=== PATIENT | male | born 1975 | race Caucasian/White ===

== ENCOUNTER 2021-02-19 02:21 | Emergency (ER) | payer BC, SELFPAY ==
[2021-02-19 02:24] VITALS: BP 161/65; PULSE 70; RESP 18; TEMP 36.7; O2SAT 98; BMI 42.3
--- NOTE | 2021-02-19 03:31 | PC.NURSE ---
PT TO HALLWAY BED WITH C/O NECK PAIN. PT ARRIVES ALERT, RESPIRATIONS EASY N/L. SKIN W/D. PT AWAITING FOR MD'S EVAL. WILL CONTINUE TO MONITOR PT.
--- NOTE | 2021-02-19 03:47 | ED_ITS ---
HPI - General Adult General Chief complaint: Neck Pain/Injury Stated complaint: Neck pain (no injury) Time Seen by Provider: 02/19/21 03:44 Source: patient Mode of arrival: ambulatory History of Present Illness HPI narrative: This is a 45-year-old male without significant past medical history who presents with neck pain that has been worsening since Friday night and has not been associated with any headache/dizziness/fevers/chills and ricco kinsey reports that he is up-to-date on all vaccines. In addition, patient denies any ear pain, sore throat, recent cough, or traumatic event. Related Data Previous Rx's Medication Instructions Recorded cyclobenzaprine 10 mg tablet 10 mg PO BEDTIME PRN #4 tab 02/19/21 ketorolac 10 mg tablet 10 mg PO Q6H PRN 5 Days #20 tab 02/19/21 Allergies Allergy/AdvReac Type Severity Reaction Status Date / Time acetaminophen [From TYLENOL] Allergy Severe RASH Unverified 12/23/19 14:41 Review of Systems Review of Systems: Pertinent positives and negatives as stated in HPI 10 point review of systems is otherwise negative. PMFSH Past Medical History Source: nursing notes reviewed Medical History Sleep apnea Sleep apnea Surgical History H/O cardiac radiofrequency ablation Social History Social History Advance Directives: No Physical Exam Vital Signs: Vital Signs: Last Vital Signs Temp 98.0 F 02/19/21 02:24 Pulse 70 02/19/21 02:24 Resp 18 02/19/21 02:24 BP 161/65 H 02/19/21 02:24 Pulse Ox 98 02/19/21 02:24 Body Mass Index 42.3 VITAL SIGNS: Reviewed. GENERAL: Well developed, well nourished, in no acute distress. HEAD: Normocephalic/atraumatic, enlarged lymph node that is tender on palpation noted at right occipital base EYES: PERRLA, EOMI EARS: Ext canals without abnormality, TMs non-bulging and non-erythematous NOSE: Nares patent bilateral OROPHARYNX: no oral lesions noted, posterior pharynx clear and non-erythematous without noted tonsillar enlargement/erythema/exudates NECK: Supple, no adenopathy, pain on flexion/extension/looking over either shoulder, there is no tenderness to palpation at midline cervical. LUNGS: Normal breath sounds. No adventitious sounds or accessory muscle use. SpO2<98> CARDIOVASCULAR: Regular rate and rhythm without noted murmurs, ABDOMEN: Soft, non-tender, non-distended with bowel sounds. MUSCULOSKELETAL: No tenderness, deformities, or effusions noted on gross inspection. EXTREMITIES: No cyanosis, clubbing or edema. SKIN: Inspection of the skin reveals no rashes NEUROLOGIC: Alert and oriented x 4. Strength and sensation to light touch were grossly intact x 4. Course Course Course Narrative: 45-year-old male with history and clinical presentation consistent with muscle spasm and low clinical suspicion for any meningitis, strep throat. Will treat with combination analgesics as well as muscle relaxant and lidocaine patch. Re-evaluation after patient received combination medication treatment and he reports significant improvement in the range of motion of his neck but still complains of pain at the lymph node. All results and findings were discussed with him and he was instructed to follow-up with his primary care provider but to continue to use warm moist compresses at that site to promote resolution. Discharge Plan Discharge Clinical Impression: Adenopathy, Muscle spasm Patient Disposition: Home, Self-Care Instructions: Lymphadenopathy (ED), Muscle Spasm (ED) Additional Instructions: 1. Lidocaine, these are available [id number] and can be apply to area of maximal tenderness as directed on the outside packaging. 2. Follow-up with your primary care provider by calling this morning and setting up an appointment for re-evaluation and further outpatient management. 3. Apply warm moist compresses to the area of tenderness to help expedite resolution. Return to the ER for acute worsening of symptoms. Prescriptions: New ketorolac 10 mg tablet 10 mg PO Q6H PRN (Reason: pain) 5 Days Qty: 20 RF: 0 cyclobenzaprine 10 mg tablet 10 mg PO BEDTIME PRN (Reason: muscle spasm) Qty: 4 RF: 0 Referrals: Jose Alejandro Hernandez MD [Primary Care Provider] - 2 days
[2021-02-19] MEDS: Ketorolac Tromethamine 15 MG/ML VIAL IVPUSH (04:01)
[2021-02-19] MEDS: Lidocaine 4 % Patch ADH..PATCH 1 PATCH TRANSDERMA (04:02)
[2021-02-19] MEDS: Cyclobenzaprine HCl 10 MG TABLET PO (04:02)
== END 2021-02-19 05:18 | disposition home or self-care (01) ==
PROVIDERS: Emergency Provider Student in an Organized Health Care Education/Training Program; PCP Internal Medicine
DX: M62.838 Other muscle spasm (principal); R59.0 Localized enlarged lymph nodes
CPT/HCPCS: 96374; 99283; 99284; J1885

== ENCOUNTER 2021-02-19 13:45 | Emergency (ER) | payer BC, SELFPAY ==
--- NOTE | ~2021-02-19 | CT_ITS ---
CT SOFT TISSUE NECK WITH IV CONTRAST CLINICAL INFORMATION: Right-sided neck swelling/mastoid swelling and neck stiffness. COMPARISON: None available. TECHNIQUE: Following the intravenous administration of 60 mL of Omnipaque 350 intravenous contrast, helical imaging was performed in the axial plane with generation of coronal and sagittal reformatted images. This CT examination was performed using dose optimization techniques as appropriate, variously including the following: *Automated exposure control *Adjustment of mA and/or kV according to patient size (this includes techniques or standardized protocols for targeted exams where dose is matched to indication/reason for exam; i.e. extremities or head) *Use of iterative reconstruction technique FINDINGS: There is focal reticulation superficial to the posterior aspect of the superficial right parotid lobe which could reflect early parotitis given the clinical history. No radiopaque calculi along Stensen's duct on either side and no discrete drainable abscess. The submandibular glands are normal. The thyroid gland is enlarged and heterogeneous in attenuation which can be further assessed with thyroid function tests. No contour abnormality or pathologic enhancement is seen within the oral cavity or pharyngeal mucosal space. There is retropharyngeal/prevertebral soft tissue swelling at the C2-C5 levels that could reflect retropharyngeal cellulitis or that could reflect longus coli calcific tendinitis given the presence of very mild calcification inferior to the anterior C1 ring on the right side. The laryngeal structures are normal. The parapharyngeal fat is preserved. The carotid sheath vasculature opacify normally. No extra mucosal soft tissue mass or fluid collection is seen. No cervical lymphadenopathy. The superior mediastinum is unremarkable. The lung apices are clear. The mastoid air cells and visualized portions of the paranasal sinuses are well-aerated. Reversal of the cervical lordosis. Elongated styloid processes bilaterally that can be correlated for clinical signs of Chilkat syndrome. There is periapical lucency surrounding the root of the right first mandibular premolar. The imaged portions of the brain parenchyma are unremarkable. CT/CT soft tissue neck w con IMPRESSION: - There is retropharyngeal/prevertebral soft tissue swelling at the C2-C5 levels that could reflect retropharyngeal cellulitis or that could reflect longus coli calcific tendinitis given the presence of very mild calcification inferior to the anterior C1 ring on the right side. - There is focal reticulation superficial to the posterior aspect of the superficial right parotid lobe which could reflect early parotitis given the clinical history. No radiopaque calculi along Stensen's duct on either side and no discrete drainable abscess. - The thyroid gland is enlarged and heterogeneous in attenuation which can be further assessed with thyroid function tests. - Elongated styloid processes bilaterally that can be correlated for clinical signs of Chilkat syndrome. - There is periapical lucency surrounding the root of the right first mandibular premolar.
[2021-02-19 14:34] VITALS: BP 170/94; PULSE 94; RESP 18; TEMP 37.2; O2SAT 95; BMI 37.5
[2021-02-19 17:28] LABS: MANUAL DIFF FLAG NO
[2021-02-19 17:30] VITALS: BP 143/80; PULSE 97; RESP 17; TEMP 36.9; O2SAT 97
[2021-02-19 17:30] LABS: Basophils Percent Auto 0.2 % (0-2); Eosinophils Absolute Auto 0.1 X10*3/uL (0.0-0.4); Eosinophils Percent Auto 0.8 % (0-4); Hematocrit 45.3 % (42.0-52.0); Hemoglobin 15.7 g/dl (14.0-18.0); Imm Gran Abs Auto 0.08 X10*3/uL (0.00-0.03); Imm Gran Pct Auto 0.7 % (0.0-0.4); Mean Corpuscular HGB Conc 34.7 g/dl (31.0-36.0); Mean Corpuscular Hemoglobin 31.1 pg (27.0-33.0); Mean Corpuscular Volume 89.7 fL (80.0-98.0); Mean Platelet Volume 10.1 fL (9.4-12.4); Monocytes Absolute Auto 0.7 X10*3/uL (0.1-1.2); Monocytes Percent Auto 5.5 % (2-11); Neutrophils Absolute Auto 9.3 x10*3/uL (2.0-8.3); Neutrophils Percent Auto 76.8 % (45-73); Platelet Count 252 X10*3/uL (160-400); Red Blood Count 5.05 X10*6/uL (4.60-5.80); Red Cell Distribution Width 12.3 % (11.0-16.0); White Blood Count 12.2 X10*3/uL (4.8-10.8)
[2021-02-19] MEDS: diazePAM 5 MG TABLET PO (17:32)
[2021-02-19 17:39] LABS: IDNOW Serial# 9DD0AD1C; Strep A Nucleic Acid Negative (Negative)
--- NOTE | 2021-02-19 17:46 | ED_ITS ---
HPI - General Adult General Chief complaint: General Medical <SARAH Flores - Last Filed: 02/19/21 18:54> Stated complaint: neck pain <SARAH Flores Last Filed: 02/19/21 18:54> Time Seen by Provider: 02/19/21 16:26 <SARAH Flores - Last Filed: 02/19/21 18:54> Source: patient <SARAH Flores - Last Filed: 02/19/21 18:54> Mode of arrival: ambulatory <SARAH Flores - Last Filed: 02/19/21 18:54> History of Present Illness HPI narrative: 45-year-old male with a past medical history of sleep apnea presenting to the ED complaining of continued neck pain/stiffness > right, worsening since Friday with associated sore throat, mild headache, and swelling behind right ear. Admits to chills. Patient was evaluated in ED this morning for similar symptoms, discharged with Flexeril/Toradol without relief. Denies lig htheadedness/dizziness, vision changes, CP/SOB, weakness, numbness, back pain, fever, trauma/fall or injury <SARAH Flores - Last Filed: 02/19/21 18:54> Onset (ago): day(s) <SARAH Flores - Last Filed: 02/19/21 18:54> Related Data Home medications: Previous Rx's Medication Instructions Recorded clindamycin HCl 300 mg capsule 450 mg PO Q8H 7 Days #32 cap 02/19/21 cyclobenzaprine 10 mg tablet 10 mg PO BEDTIME PRN #4 tab 02/19/21 ketorolac 10 mg tablet 10 mg PO Q6H PRN 5 Days #20 tab 02/19/21 lidocaine 5 % topical patch 1 patch TOPICAL DAILY PRN #30 ea 02/19/21 (Lidoderm) MDD remove after 12 hours oxycodone 5 mg capsule 5 mg PO Q8H PRN 3 Days #9 cap 02/19/21 <SARAH Flores - Last Filed: 02/19/21 18:54> Allergies/adverse reactions: Allergies Allergy/AdvReac Type Severity Reaction Status Date / Time acetaminophen [From TYLENOL] Allergy Severe RASH Verified 02/19/21 14:34 <SARAH Flores - Last Filed: 02/19/21 18:54> Review of Systems Review of Systems: Constitutional: No Fever, No Fatigue, No Malaise ENT/Mouth: No Hearing loss, No Ear Pain, No Nasal Congestion, No Sinus Pain, No Hoarseness, + sore throat, No Rhinorrhea, No Swallowing Difficulty Eyes: No Eye Pain, No Swelling, No Redness, No visual changes Cardiovascular: No Chest Pain, No SOB, No Dyspnea on Exertion Respiratory: No Cough, No Dyspnea Gastrointestinal: No Nausea, No Vomiting, No Diarrhea, No Constipation, No Abdominal pain Genitourinary: No Dysuria, No Urinary Incontinence, No Flank Pain Musculoskeletal: + joint pain, No Myalgias, No Joint Swelling Skin: No Skin Lesions, No rash Neuro: No Weakness, No Numbness, No Dizziness, + Headache <SARAH Flores - Last Filed: 02/19/21 18:54> Yes all other systems are reviewed and are negative <SARAH Flores - Last Filed: 02/19/21 18:54> [facility] Past Medical History Attestation statement: The following information was validated with the patient. <SARAH Flores - Last Filed: 02/19/21 18:54> Medical History: Medical History (Updated 02/19/21 @ 18:52 by SARAH Flores) Sleep apnea <SARAH Flores - Last Filed: 02/19/21 18:54> Surgical History: Surgical History H/O cardiac radiofrequency ablation <SARAH Flores - Last Filed: 02/19/21 18:54> Social History Social History: Social History Advance Directives: No <SARAH Flores Last Filed: 02/19/21 18:54> Physical Exam Vital Signs: Vital Signs: Last Vital Signs Temp 98 F 02/19/21 19:37 Pulse 90 02/19/21 19:37 Resp 18 02/19/21 19:37 BP 153/78 H 02/19/21 19:37 Pulse Ox 97 02/19/21 19:37 Body Mass Index 37.5 <SARAH Flores - Last Filed: 02/19/21 18:54> Vital Signs: Last Vital Signs Temp 98 F 02/19/21 19:37 Pulse 90 02/19/21 19:37 Resp 18 02/19/21 19:37 BP 153/78 H 02/19/21 19:37 Pulse Ox 97 02/19/21 19:37 Body Mass Index 37.5 <Serene Perdue NC - Last Filed: 02/19/21 19:52> Const: General: cooperative, healthy appearing and no acute distress <SARAH Flores - Last Filed: 02/19/21 18:54> Orientation/consciousness: patient oriented x3 <SARAH Flores - Last Helio ed: 02/19/21 18:54> Limitations: no limitations <SARAH Flores - Last Filed: 02/19/21 18:54> HENMT: Other: Right mastoid with mild swelling and tenderness to palpation. Slight overlying erythema. Mild right-sided submandibular/postauricular lymphadenopathy <SARAH Flores - Last Filed: 02/19/21 18:54> Head: Yes normal to inspection and Yes atraumatic <Chapis Song NC - Last Filed: 02/19/21 18:54> Ears: hearing grossly normal bilaterally, external ears normal and TM's normal bilaterally <SARAH Flores - Last Filed: 02/19/21 18:54> General nose exam: Normal external nose present <SARAH Flroes - Last Filed: 02/19/21 18:54> Face and sinus: Yes normal facial exam <SARAH Flores - Last Filed: 02/19/21 18:54> Mouth: no audible dysphonia, no drooling, trismus and restricted motion (Secondary to neck pain) <SARAH Flores - Last Filed: 02/19/21 18:54> Throat: Yes posterior oropharynx normal, Yes tonsils normal, Yes uvula midline, No peritonsillar mass and No uvular edema <SARAH Flores - Last Filed: 02/19/21 18:54> Eyes: General: appearance normal, both eyes and all related structures <SARAH Flores - Last Filed: 02/19/21 18:54> EOM: EOMs intact bilaterally <Chapis Nohemi PA - Last Filed: 02/19/21 18:54> Neck: Other: + restricted ROM of neck secondary to pain. No midline cervical spinous tenderness to palpation. Right-sided paraspinal ttp. No erythema/cellulitis <Chapis Nohemi PA - Last Filed: 02/19/21 18:54> Neck: Yes normal visual inspection and Yes no meningeal signs <Chapis Nohemi PA - Last Filed: 02/19/21 18:54> Resp: Effort & Inspection: normal respiratory effort, no respiratory distress and no stridor <Chapis Nohemi PA - Last Filed: 02/19/21 18:54> Cardio: Rate: regular rate <Chapis Nohemi PA - Last Filed: 02/19/21 18:54> Heart sounds: S1 normal heart sound present and S2 normal heart sound present <Chapis Nohemi PA - Last Filed: 02/19/21 18:54> GI: Inspection: Yes normal to inspection <Chapis Song PA - Last Filed: 02/19/21 18:54> Back/Spine/Pelvis: Other: No midline thoracic/lumbar spinous tenderness <Chapis Nohemi, PA - Last Filed: 02/19/21 18:54> Skin: Rashes: no rashes <Chapis Song PA - Last Filed: 02/19/21 18:54> Wounds: no wounds <Chapis Song PA - Last Filed: 02/19/21 18:54> Neuro: General: patient oriented x3, gait normal, tone normal, moves all extremities and no meningeal signs <Chapis Song PA - Last Filed: 02/19/21 18:54> Cranial nerves: Yes CN's II-XII intact bilaterally <Chapis Nohemi PA - Last Filed: 02/19/21 18:54> Gait exam (Neuro): Normal gait present <Chapisabhijeet Song PA - Last Filed: 02/19/21 18:54> Extrem: General: Yes normal to inspection <Chapis Song PA - Last Filed: 02/19/21 18:54> Course Course Course Narrative: -1805--mild leukocytosis of 12.2, labs otherwise unremarkable -rapid strep negative -1900--ED care transferred to SARAH Cast pending CT results and dispo per results <SARAH Flores - Last Filed: 02/19/21 18:54> Medical Decision Making MDM Narrative Medical decision making narrative: 45-year-old male with a past medical history of sleep apnea presenting to the ED complaining of continued neck pain/stiffness > right, worsening since Friday with associated sore throat, mild headache, and swelling behind right ear. On exam vital signs stable, NAD/nontoxic, neck stiffness noted with right- sided paraspinal tenderness. Swelling noted to right mastoid/postauricular lymphadenopathy and trismus/difficulty opening mouth secondary to pain. Concern for deeper/underlying infection/edema for mastoiditis vs ?Cellulitis vs MSK pain No evidence of [employer] or strep pharyngitis at this time. Low concern for meningitis. TMs WNL Plan: Labs, CT neck soft tissue with contrast, COVID swab <SARAH Flores - Last Filed: 02/19/21 18:54> Lab Data Result diagrams: : 02/19/21 17:23 02/19/21 17:23 <SARAH Flores - Last Filed: 02/19/21 18:54> Labs: Lab Results 02/19/21 02/19/21 02/19/21 Range/Units 17:22 17:23 17:23 WBC 12.2 H (4.8-10.8) X10*3/uL RBC 5.05 (4.60-5.80) X10*6/uL Hgb 15.7 (14.0-18.0) g/dl Hct 45.3 (42.0-52.0) % MCV 89.7 (80.0-98.0) fL MCH 31.1 (27.0-33.0) pg MCHC 34.7 (31.0-36.0) g/dl RDW 12.3 (11.0-16.0) % Plt Count 252 (160-400) X10*3/uL MPV 10.1 (9.4-12.4) fL Immature Gran % (Auto) 0.7 H (0.0-0.4) % Neut % (Auto) 76.8 H (45-73) % Lymph % (Auto) 16.0 L (20-40) % [place] % (Auto) 5.5 (2-11) % Eos % (Auto) 0.8 (0-4) % Baso % (Auto) 0.2 (0-2) % Lymph # (Auto) 2.0 (1.2-4.9) X10*3/uL [place] # (Auto) 0.7 (0.1-1.2) X10*3/uL Eos # (Auto) 0.1 (0.0-0.4) X10*3/uL Baso # (Auto) 0.0 (0.0-0.2) X10*3/uL Abs Immat Gran (auto) 0.08 H (0.00-0.03) X10*3/uL Absolute Neuts (auto) 9.3 H (2.0-8.3) x10*3/uL Absolute Nucleated RBC 0.000 (0.0-0.012) X10*3/uL Nucleated RBC % (auto) 0.0 (0.0-0.2) /100WBC Sodium (135-145) mmol/L Potassium (3.3-5.1) mmol/L Chloride (96-108) mmol/L Carbon Dioxide (22-29) mmol/L Anion Gap (12-20) BUN (9-16) mg/dL Creatinine (0.5-1.4) mg/dL Estim Creat Clear Calc Estimated GFR Random Glucose (60-115) mg/dL Calcium (8.4-10.2) mg/dL COVID-19 ([facility]) Negative (Negative) COVID-19 Clin Com See Note S. pyogenes GrpA [facility] Negative (Negative) 02/19/21 Range/Units 17:23 WBC (4.8-10.8) X10*3/uL RBC (4.60-5.80) X10*6/uL Hgb (14.0-18.0) g/dl Hct (42.0-52.0) % MCV (80.0-98.0) fL MCH (27.0-33.0) pg MCHC (31.0-36.0) g/dl RDW (11.0-16.0) % Plt Count (160-400) X10*3/uL MPV (9.4-12.4) fL Immature Gran % (Auto) (0.0-0.4) % Neut % (Auto) (45-73) % Lymph % (Auto) (20-40) % [place] % (Auto) (2-11) % Eos % (Auto) (0-4) % Baso % (Auto) (0-2) % Lymph # (Auto) (1.2-4.9) X10*3/uL [place] # (Auto) (0.1-1.2) X10*3/uL Eos # (Auto) (0.0-0.4) X10*3/uL Baso # (Auto) (0.0-0.2) X10*3/uL Abs Immat Gran (auto) (0.00-0.03) X10*3/uL Absolute Neuts (auto) (2.0-8.3) x10*3/uL Absolute Nucleated RBC (0.0-0.012) X10*3/uL Nucleated RBC % (auto) (0.0-0.2) /100WBC Sodium 136 (135-145) mmol/L Potassium 4.6 (3.3-5.1) mmol/L Chloride 101 (96-108) mmol/L Carbon Dioxide 27 (22-29) mmol/L Anion Gap 13 (12-20) BUN 10 (9-16) mg/dL Creatinine 0.92 (0.5-1.4) mg/dL Estim Creat Clear Calc 118.0 Estimated GFR > 60 Random Glucose 107 (60-115) mg/dL Calcium 9.4 (8.4-10.2) mg/dL COVID-19 ([facility]) (Negative) COVID-19 Clin Com S. pyogenes GrpA [facility] (Negative) <SARAH Flores - Last Filed: 02/19/21 18:54> Lab Results 02/19/21 02/19/21 02/19/21 Range/Units 17:22 17:23 17:23 WBC 12.2 H (4.8-10.8) X10*3/uL RBC 5.05 (4.60-5.80) X10*6/uL Hgb 15.7 (14.0-18.0) g/dl Hct 45.3 (42.0-52.0) % MCV 89.7 (80.0-98.0) fL MCH 31.1 (27.0-33.0) pg MCHC 34.7 (31.0-36.0) g/dl RDW 12.3 (11.0-16.0) % Plt Count 252 (160-400) X10*3/uL MPV 10.1 (9.4-12.4) fL Immature Gran % (Auto) 0.7 H (0.0-0.4) % Neut % (Auto) 76.8 H (45-73) % Lymph % (Auto) 16.0 L (20-40) % [place] % (Auto) 5.5 (2-11) % Eos % (Auto) 0.8 (0-4) % Baso % (Auto) 0.2 (0-2) % Lymph # (Auto) 2.0 (1.2-4.9) X10*3/uL [place] # (Auto) 0.7 (0.1-1.2) X10*3/uL Eos # (Auto) 0.1 (0.0-0.4) X10*3/uL Baso # (Auto) 0.0 (0.0-0.2) X10*3/uL Abs Immat Gran (auto) 0.08 H (0.00-0.03) X10*3/uL Absolute Neuts (auto) 9.3 H (2.0-8.3) x10*3/uL Absolute Nucleated RBC 0.000 (0.0-0.012) X10*3/uL Nucleated RBC % (auto) 0.0 (0.0-0.2) /100WBC Sodium (135-145) mmol/L Potassium (3.3-5.1) mmol/L Chloride (96-108) mmol/L Carbon Dioxide (22-29) mmol/L Anion Gap (12-20) BUN (9-16) mg/dL Creatinine (0.5-1.4) mg/dL Estim Creat Clear Calc Estimated GFR Random Glucose (60-115) mg/dL Calcium (8.4-10.2) mg/dL COVID-19 ([facility]) Negative (Negative) COVID-19 Clin Com See Note S. pyogenes GrpA [facility] Negative (Negative) 02/19/21 Range/Units 17:23 WBC (4.8-10.8) X10*3/uL RBC (4.60-5.80) X10*6/uL Hgb (14.0-18.0) g/dl Hct (42.0-52.0) % MCV (80.0-98.0) fL MCH (27.0-33.0) pg MCHC (31.0-36.0) g/dl RDW (11.0-16.0) % Plt Count (160-400) X10*3/uL MPV (9.4-12.4) fL Immature Gran % (Auto) (0.0-0.4) % Neut % (Auto) (45-73) % Lymph % (Auto) (20-40) % [place] % (Auto) (2-11) % Eos % (Auto) (0-4) % Baso % (Auto) (0-2) % Lymph # (Auto) (1.2-4.9) X10*3/uL [place] # (Auto) (0.1-1.2) X10*3/uL Eos # (Auto) (0.0-0.4) X10*3/uL Baso # (Auto) (0.0-0.2) X10*3/uL Abs Immat Gran (auto) (0.00-0.03) X10*3/uL Absolute Neuts (auto) (2.0-8.3) x10*3/uL Absolute Nucleated RBC (0.0-0.012) X10*3/uL Nucleated RBC % (auto) (0.0-0.2) /100WBC Sodium 136 (135-145) mmol/L Potassium 4.6 (3.3-5.1) mmol/L Chloride 101 (96-108) mmol/L Carbon Dioxide 27 (22-29) mmol/L Anion Gap 13 (12-20) BUN 10 (9-16) mg/dL Creatinine 0.92 (0.5-1.4) mg/dL Estim Creat Clear Calc 118.0 Estimated GFR > 60 Random Glucose 107 (60-115) mg/dL Calcium 9.4 (8.4-10.2) mg/dL COVID-19 ([facility]) (Negative) COVID-19 Clin Com S. pyogenes GrpA [facility] (Negative) <SARAH Mcmanus - Last Filed: 02/19/21 19:52> Discharge Plan Discharge Clinical Impression: Lymphadenopathy, Acute neck pain <SARAH Flores - Last Filed: 02/19/21 18:54> Patient Disposition: Still a Patient <SARAH Flores Last Filed: 02/19/21 18:54> Instructions: Lymphadenopathy (ED) <SARAH Flores Last Filed: 02/19/21 18:54> Additional Instructions: Your blood work looks reassuring today in the emergency department Clindamycin is an antibiotic, please take as prescribed for your lymphadenopathy Lidoderm patches or numbing patches, apply to painful area Oxycodone is opiate pain medication, take only would pain is severe for the next 3 days. In addition take previously prescribed medications. Apply heat P follow-up with her doctor If symptoms persist/worsen, pain becomes unbearable, your unable to move her neck, have shortness of breath, increased swelling please return to the ED <SARAH Flores - Last Filed: 02/19/21 18:54> Prescriptions: New clindamycin HCl 300 mg capsule 450 mg PO Q8H 7 Days Qty: 32 RF: 0 lidocaine [Lidoderm] 5 % adhesive patch,medicated 1 patch topical DAILY MDD remove after 12 hours PRN (Reason: pain) Qty: 30 RF: 0 oxycodone 5 mg capsule 5 mg PO Q8H PRN (Reason: pain, severe) 3 Days Qty: 9 RF: 0 No Action ketorolac 10 mg tablet 10 mg PO Q6H PRN (Reason: pain) 5 Days Qty: 20 RF: 0 cyclobenzaprine 10 mg tablet 10 mg PO BEDTIME PRN (Reason: muscle spasm) Qty: 4 RF: 0 <SARHA Flores Last Filed: 02/19/21 18:54> Referrals: Jose Alejandro Hernandez MD [Primary Care Provider] - 2 days <SARAH Flores Last Filed: 02/19/21 18:54>
[2021-02-19 18:08] LABS: Anion Gap 13 (12-20); Blood Urea Nitrogen 10 mg/dL (9-16); Calcium 9.4 mg/dL (8.4-10.2); Carbon Dioxide 27 mmol/L (22-29); Chloride 101 mmol/L (96-108); Estimated Glomerular Filt Rate > 60; Glucose Random 107 mg/dL (60-115); Potassium 4.6 mmol/L (3.3-5.1); Sodium 136 mmol/L (135-145)
[2021-02-19] MEDS: iohexoL 350 MG/ML 100 ML INFUS..BTL IV (18:24)
[2021-02-19 19:11] LABS: COVID-19 Test Negative (Negative)
[2021-02-19 19:37] VITALS: BP 153/78; PULSE 90; RESP 18; TEMP 36.6; O2SAT 97
--- NOTE | 2021-02-19 20:07 | PC.NURSE ---
PT RESTING IN BED. TOLL O FLUID. CT SHOWED RETRO PHARYNGEAL CELLULITIS. PT TO BE TRANSFERED TO [facility].
--- NOTE | 2021-02-19 21:04 | PHA.MEDREC ---
Pharmacy Consult ? Medication Reconciliation Pharmacy has completed the medication reconciliation.
[2021-02-19 21:08] LABS: Lactic Acid 1.4 mmol/L (0.5-2.0)
[2021-02-19 21:10] LABS: C Reactive Protein 1.98 mg/dL (< or = 0.50)
[2021-02-19] MEDS: Morphine Sulfate 4 MG/ML CARTRIDGE IVPUSH (21:14)
[2021-02-19] MEDS: ondansetron HCL 4 MG/2 ML VIAL IVPUSH (21:15)
[2021-02-19] MEDS: dexAMETHasone sod phosphate 10 MG/ML VIAL IVPUSH (21:15)
[2021-02-19] MEDS: 0.9 % Sodium Chloride 1,000 ML 999 ML IVCONT (21:15)
[2021-02-19] MEDS: Piperacillin Sodium/Tazobactam 3.375 GM in 0.9 % Sodium Chloride 50 ML IV (21:15)
[2021-02-19 21:32] LABS: TSH reflex Free T4 1.15 uIU/mL (0.32-4.0)
[2021-02-19 21:45] LABS: Erythrocyte Sedimentation Rate 13 MM/HR (0-15)
[2021-02-19 22:04] VITALS: RESP 17
[2021-02-20 00:56] VITALS: BP 168/88; PULSE 90; RESP 20; TEMP 37.2; O2SAT 96
--- NOTE | 2021-02-20 01:52 | PC.NURSE ---
Per MD, [facility] accepted this pt but does not have a bed until morning. Per MD, concern for airway compromise, requesting pt be transferred closer to nursing station. Pt moved into room 14, telemetry and CO2 applied. VSS. Pt resting in POC with CPAP in place, aware of plan to transfer to [facility] in the morning for ENT.
[2021-02-20 02:08] VITALS: BP 142/82; PULSE 67; RESP 20; O2SAT 95
--- NOTE | 2021-02-20 02:50 | PC.NURSE ---
PT was placed on capnography while being monitored over night. PT was using CPAP machine for sleep apnea while in the hospital but could not keep the CPAP on with capnography. PT taken off of capnography in order to use CPAP while he sleeps.
[2021-02-20 04:19] VITALS: BP 129/75; PULSE 58; RESP 18; O2SAT 94
--- NOTE | 2021-02-20 04:31 | PC.NURSE ---
PT O2 sat dropped down to 88% on CPAP. CPAP machine adjusted and reapplied. O2 sat is now consistently at 92-93% with CPAP applied. Provider made aware. Provider asked to contact RT to confirm that CPAP was functioning properly.
[2021-02-20 06:25] VITALS: BP 123/69; PULSE 71; RESP 13; O2SAT 94
--- NOTE | 2021-02-20 06:26 | PC.NURSE ---
Pt resting on stretcher in NAD, breathing with ease on RA, VSS. Pt speaking in complete, clear sentences. Pt reports pain to neck as charted. Pt offers no additional complaints. Stretcher low locked position, rails raised, call gutierres within reach
[2021-02-20 06:39] VITALS: TEMP 36.7
[2021-02-20] MEDS: Piperacillin Sodium/Tazobactam 3.375 GM in 0.9 % Sodium Chloride 50 ML IV (08:25)
[2021-02-20 11:06] VITALS: BP 132/82; PULSE 88; RESP 19; O2SAT 98
== END 2021-02-20 11:21 | disposition short-term general hospital (02) ==
PROVIDERS: Physician Assistant; Physician Assistant Medical; Emergency Provider Emergency Medicine; PCP Internal Medicine
DX: M54.2 Cervicalgia (principal); R59.0 Localized enlarged lymph nodes; D72.829 Elevated white blood cell count, unspecified; Z20.822 Contact with and (suspected) exposure to COVID-19
CPT/HCPCS: 36415; 70491; 80048; 83605; 84443; 85025; 85652; 86140; 87040; 87635; 87651; 96361; 96374; 96375; 99285; J1100; J2270; J2405; J2543; Q9967